=== PATIENT | male | born 1965 | race American Indian/Alaskan Native ===

== ENCOUNTER 2019-04-16 23:21 | Emergency (ER) | payer MEDICARE ==
[2019-04-16 23:47] VITALS: BP 129/80
--- NOTE | 2019-04-17 02:57 | XRay Report ---
LEFT HAND 3 VIEW(S) INDICATION / CLINICAL INFORMATION: hand pain and swelling COMPARISON: None available. FINDINGS: BONES / JOINT(S): No acute fracture or subluxation. Old, healed fracture of the base of the little fi nger metacarpal. 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 SOFT TISSUES: Mild soft tissue swelling on the dorsum of the hand. ADDITIONAL FINDINGS: None. Signer Name: Daisy Kent MD Signed: 04/17/2019 2:52 AM Workstation Name: [id number]
--- NOTE | 2019-04-17 04:01 | Emergency Department Report ---
ED General Adult HPI - General Chief complaint: Extremity Injury, Upper Stated complaint: LT HAND SWOLLEN AND HIP PAIN Time Seen by Provider: 04/17/19 01:31 Source: patient Mode of arrival: Ambulatory Limitations: No Limitations - History of Present Illness Initial comments: 54-year-old [place] male reports emerge department complaining of atraumatic r ight hand pain and swelling with palpation and range of motion has been present off and on for the last week.. Postop fever, chills, sweats, sweats. No nausea, vomiting, no numbness or tingling. Also reports some chronic pain to his left hip radiates down his buttocks and across his back last 2 years. -: Gradual Location: upper extremity Radiation: non-radiation Severity scale (0 -10): 8 Quality: aching, dull Improves with: none Worsens with: none, movement Associated Symptoms: denies: chest pain, diaphoresis, fever/chills, nausea/vomiting, rash, syncope, weakness - Related Data Previous Rx's Medication Instructions Recorded Last Taken Type Ketorolac [Toradol] 10 mg PO Q6H PRN #15 tablet 04/17/19 Unknown Rx traMADol [Ultram] 50 mg PO Q6HR PRN #20 tablet 04/17/19 Unknown Rx Allergies Allergy/AdvReac Type Severity Reaction Status Date / Time No Known Allergies Allergy Verified 04/16/19 23:29 ED Review of Systems ROS: Stated complaint: LT HAND SWOLLEN AND HIP PAIN Other details as noted in HPI Comment: All other systems reviewed and negative ED Past Medical Hx - Past Medical History Previous Medical History?: No - Surgical History Past Surgical History?: Yes Additional Surgical History: brain - Social History Smoking Status: Never Smoker Substance Use Type: None - Medications Home Medications: Home Medications Medication Instructions Recorded Confirmed Last Taken Type Ketorolac [Toradol] 10 mg PO Q6H PRN #15 tablet 04/17/19 Unknown Rx traMADol [Ultram] 50 mg PO Q6HR PRN #20 tablet 04/17/19 Unknown Rx ED Physical Exam - General Limitations: No Limitations General appearance: alert, in no apparent distress - Head Head exam: Present: atraumatic, normocephalic - Eye Eye exam: Present: normal appearance - ENT ENT exam: Present: mucous membranes moist - Neck Neck exam: Present: normal inspection - Respiratory Respiratory exam: Present: normal lung sounds bilaterally. Absent: respiratory distress - Cardiovascular Cardiovascular Exam: Present: regular rate, normal rhythm. Absent: systolic murmur, diastolic murmur, rubs, gallop - GI/Abdominal GI/Abdominal exam: Present: soft, normal bowel sounds - Rectal Rectal exam: Present: deferred - Extremities Exam Extremities exam: Present: normal inspection - Expanded Upper Extremity Exam Left Hand Wrist exam: Present: tenderness, swelling. Absent: abrasion, dislocation, amputation, nail avulsion, subungual hematoma Hand L/R Back: 1 - Tenderness in this region with palpation and flexion of the metaca rpophalangeal joint. No broken skin. No cellulitis or lymphangitis. No petechia Vascular: Present: normal capillary refill - Back Exam Back exam: Present: normal inspection - Neurological Exam Neurological exam: Present: alert, oriented X3, CN II-XII intact - Psychiatric Psychiatric exam: Present: normal affect, normal mood - Skin Skin exam: Present: warm, dry, intact, normal color. Absent: rash ED Course Vital Signs 04/16/19 23:46 Temperature 97.4 F L Pulse Rate 55 L Respiratory 16 Rate Blood Pressure 129/80 [Right] O2 Sat by Pulse 100 Oximetry Critical care attestation.: If time is entered above; I have spent that time in minutes in the direct care of this critically ill patient, excluding procedure time. ED Disposition Clinical Impression: Arthralgia Disposition: - TO HOME OR SELFCARE Is pt being admited?: No Does the pt Need Aspirin: No Condition: Stable Instructions: Arthralgia (ED), Lumbar Radiculopathy (ED), Sciatica (ED) Referrals: HUBERT SANTOS [Other] - 3-5 Days
== END 2019-04-17 04:20 | disposition home or self-care (01) ==
LOC: ED 23:21
DX: M79.642 Pain in left hand (principal); Z79.899 Other long term (current) drug therapy
CPT/HCPCS: 99283